=== PATIENT | male | born 1990 | race Caucasian/White ===

== ENCOUNTER 2017-02-26 17:27 | Emergency (ER) | payer OTHER ==
[~2017-02-26 17:27] MED LIST: CATAPRES0.1 MG PO; CITALOPRAM HBR40 MG PO; CLARITIN10 M2 PO; DEPAKOTE ER250 MG PO; DESYREL50 MG PO; IBUPROFEN800 MG PO; MULTIVITAMIN1 UDCAP PO; NEXIUM PO; NOVOLOG100 U/M1; OLANZAPINE5 MG PO; SYNTHROID0.05 MG PO; TYLENOL #3; ZYPREXA7.5 MG PO
== END 2017-02-26 18:35 | disposition home or self-care (01) ==
LOC: CFTX 17:27 → CED 17:27 → CFTX 18:24
DX: S60.512A Abrasion of left hand, initial encounter (principal); Z23 Encounter for immunization; I10 Essential (primary) hypertension; E11.9 Type 2 diabetes mellitus without complications; F41.9 Anxiety disorder, unspecified; E03.9 Hypothyroidism, unspecified; K21.9 Gastro-esophageal reflux disease without esophagitis; F17.200 Nicotine dependence, unspecified, uncomplicated; W45.0XXA Nail entering through skin, initial encounter; Y92.096 Garden or yard of other non-institutional residence as the place of occurrence of the external cause
CPT/HCPCS: 90471; 90715; 99283